=== PATIENT | female | born 1985 | race African-American/Black ===

== ENCOUNTER 2017-04-17 09:16 | Emergency (ER) | payer SELFPAY, OTHER ==
[2017-04-17 09:45] LABS: BASO % 0 % (0-3); EOS # 0.1 x10^3/uL (0.0-0.7); EOS % 0 % (0-3); HEMATOCRIT 38.6 % (36.0-47.0); HEMOGLOBIN 12.7 g/dL (12.0-15.5); LYMPH # 0.8 x10^3/uL (1.0-4.8); LYMPH % 5 % (24-48); MEAN CORPUSCULAR HEMOGLOBIN 32 pg (25-35); MEAN CORPUSCULAR HGB CONC 33 g/dL (31-37); MEAN CORPUSCULAR VOLUME 97 fL (79-100); MONO # 1.7 x10^3/uL (0.0-1.1); MONO % 11 % (0-9); NEUT % 83 % (31-73); PLATELET COUNT 264 x10^3/uL (140-400); RED BLOOD COUNT 3.97 x10^6/uL (3.50-5.40); RED CELL DISTRIBUTION WIDTH 12.7 % (11.5-14.5); WHITE BLOOD COUNT 15.6 x10^3/uL (4.0-11.0)
[2017-04-17] MEDS ORDERED: 0.9 % SODIUM CHLORIDE 10 ML DISP.SYRIN. IV ×2 (09:45)
[2017-04-17] MEDS: KETOROLAC 30 MG/ML INJ. IV ×2 (09:46)
[2017-04-17] MEDS: IV NORMAL SALINE 1000ML BAG 1,000 ML IV ×2 (09:46)
[2017-04-17] MEDS: ONDANSETRON PF 4 MG/2 ML VIAL. IV ×2 (09:46)
[2017-04-17 09:47] LABS: ADD MAN DIFF? YES
[2017-04-17] MEDS: HYDROmorphone 2 MG/ML VIAL IV/SQ ×2 (09:47)
[2017-04-17 09:51] LABS: CLARITY,URINE CLOUDY; COLOR,URINE RED
[2017-04-17 10:04] LABS: BACTERIA,URINE MANY /HPF (0-FEW); SQUAMOUS EPITHELIAL CELL,UR MANY /LPF; WBC,URINE TNTC /HPF (0-4)
[2017-04-17 10:06] LABS: ANION GAP 10 (6-14); BLOOD UREA NITROGEN 13 mg/dL (7-20); CALCIUM 8.6 mg/dL (8.5-10.1); CARBON DIOXIDE 26 mmol/L (21-32); CHLORIDE 100 mmol/L (98-107); CREATININE 0.8 mg/dL (0.6-1.0); GFR 102.6; GLUCOSE 105 mg/dL (70-99); POTASSIUM 3.4 mmol/L (3.5-5.1); SODIUM 136 mmol/L (136-145)
[2017-04-17 10:13] LABS: ALBUMIN 3.8 g/dL (3.4-5.0); ALK PHOS 67 U/L (46-116); ALT (SGPT) 42 U/L (14-59); AST (SGOT) 41 U/L (15-37); DIRECT BILIRUBIN 0.2 mg/dL (0.0-0.2); LIPASE 90 U/L (73-393); TOTAL BILIRUBIN 0.6 mg/dL (0.2-1.0); TOTAL PROTEIN 7.6 g/dL (6.4-8.2)
[2017-04-17] MEDS ORDERED: CONTRAST GIVEN MC ×2 (10:15)
[2017-04-17] MEDS: IOHEXOL 300 MG/ML 100ML VIAL. IV ×2 (10:42)
[2017-04-17 11:46] LABS: % BASOS 1 % (0-3); % LYMPHS 4 % (24-48); % MONOS 6 % (0-10); % SEGS 89 % (35-66); PLT ESTIMATE ADEQUATE (ADEQUATE)
[2017-04-17] MEDS: CIPROFLOXACIN HCL 250 MG TABLET. PO ×2 (12:17)
== END 2017-04-17 12:35 | disposition home or self-care (01) ==
LOC: ER 09:16
DX: N12 Tubulo-interstitial nephritis, not specified as acute or chronic (principal); R06.82 Tachypnea, not elsewhere classified; R00.0 Tachycardia, unspecified
CPT/HCPCS: 36415; 74177; 80048; 80076; 81001; 83690; 85007; 85025; 87086; 87186; 96361; 96374; 96375; 99285-25; J1170; J1885; J2405; J7030; Q9967

== ENCOUNTER 2018-02-05 19:49 | Emergency (ER) | payer MEDICAID, OTHER ==
[~2018-02-05] VITALS: Ht 157.5 cm; Wt 62.1 kg
[~2018-02-05 19:49] MED LIST: CIPR500T94 PO; HYDR-2761 PO; NAPR-683 PO; PHEN-318 PO
[2018-02-05 20:22] LABS: BILIRUBIN,URINE SMALL (NEG); CLARITY,URINE TURBID; NITRITE,URINE NEGATIVE (NEG); PH,URINE 6.5; PROTEIN,URINE 100 mg/dL (NEG-TRACE)
[2018-02-05] MEDS: IV NORMAL SALINE 1000ML BAG 1,000 ML IV ONE (20:25)
[2018-02-05 20:26] LABS: COLOR,URINE YELLOW
[2018-02-05 20:28] LABS: BACTERIA,URINE MANY /HPF (0-FEW); RBC,URINE 0 /HPF (0-2)
[2018-02-05 20:29] LABS: SQUAMOUS EPITHELIAL CELL,UR MANY /LPF
[2018-02-05] MEDS: ONDANSETRON PF 4 MG/2 ML VIAL. IV ONE (20:30)
[2018-02-05 20:42] LABS: BASO % 1 % (0-3); EOS # 0.7 x10^3/uL (0.0-0.7); EOS % 9 % (0-3); HEMATOCRIT 37.5 % (36.0-47.0); HEMOGLOBIN 12.6 g/dL (12.0-15.5); LYMPH % 26 % (24-48); MEAN CORPUSCULAR HEMOGLOBIN 32 pg (25-35); MEAN CORPUSCULAR HGB CONC 34 g/dL (31-37); MEAN CORPUSCULAR VOLUME 95 fL (79-100); MONO # 0.9 x10^3/uL (0.0-1.1); MONO % 12 % (0-9); NEUT % 51 % (31-73); PLATELET COUNT 287 x10^3/uL (140-400); RED BLOOD COUNT 3.96 x10^6/uL (3.50-5.40); RED CELL DISTRIBUTION WIDTH 12.7 % (11.5-14.5); WHITE BLOOD COUNT 7.7 x10^3/uL (4.0-11.0)
[2018-02-05 20:44] LABS: CALCIUM 9.1 mg/dL (8.5-10.1); CREATININE 0.9 mg/dL (0.6-1.0); POTASSIUM 3.9 mmol/L (3.5-5.1)
[2018-02-05 20:51] LABS: ALBUMIN 3.6 g/dL (3.4-5.0); ALBUMIN/GLOBULIN RATIO 0.9 (1.0-1.7); TOTAL BILIRUBIN 0.3 mg/dL (0.2-1.0); TOTAL PROTEIN 7.5 g/dL (6.4-8.2)
[2018-02-05 21:15] LABS: INFLUENZA A PATIENT NEGATIVE (NEGATIVE); INFLUENZA B PATIENT NEGATIVE (NEGATIVE)
[2018-02-05 21:45] VITALS: BP 107/64
[2018-02-05] MEDS ORDERED: ONDA4TAB12 PO (22:34)
[2018-02-05] MEDS ORDERED: SULF1TAB24 PO (22:34)
--- NOTE | 2018-02-05 22:36 | PHYS DOC ---
Past Medical History Past Medical History: Anemia Past Surgical History: Alcohol Use: None Drug Use: None Adult General Chief Complaint Chief Complaint: NAUSEA/VOMITING/DIARRHA HPI HPI Patient is a 32 year old female who presents to the ER with complaints of nausea, vomiting, diarrhea, and a fever since 02/03/18. Pt states that the sx started after she had eaten some taco meat. Pt denies any cough, sore throat, nasal congestion, abdominal pain, irregular vaginal discharge, or dysuria. Pt states she has had fatigue and body aches. She reports low back pain with mild increase in urinary frequency. She has had one episode of vomiting and one episode of diarrhea in the last 24 hours. Her LMP was 01/16/18. Currently her discomfort is a 6/10. Review of Systems Review of Systems Constitutional:See HPI HENT: Denies nasal congestion or sore throat [] Respiratory: Denies cough or shortness of breath [] GI: Denies abdominal pain, See HPI : Denies dysuria or hematuria; See HPI[] Musculoskeletal: reports low back ache Integument: Denies rash or skin lesions [] Neurologic: Denies headache, focal weakness or sensory changes [] All other systems were reviewed and found to be within normal limits, except as documented in this note. Current Medications Current Medications Current Medications Medications (Trade) Dose Ordered Sig/Court Start Time Stop Time Status Last Admin Dose Admin Ondansetron HCl (Zofran) 4 mg 1X ONCE 02/05/18 20:30 02/05/18 20:31 DC 02/05/18 20:30 4 MG Sodium Chloride 1,000 ml @ 1,000 mls/hr 1X ONCE 02/05/18 20:30 02/05/18 21:29 DC 02/05/18 20:25 1,000 MLS/HR Allergies Allergies Allergies Coded Allergies Type Severity Reaction Last Updated Verified No Known Drug Allergies 07/20/13 No Physical Exam Physical Exam Constitutional: Well developed, well nourished, no acute distress, non-toxic appearance. [] HENT: Normocephalic, atraumatic, bilateral external ears normal, dry mucous membranes and lips, no oral exudates, nose normal. [] Eyes: conjunctiva normal, no discharge. [] Neck: Normal range of motion Cardiovascular:Heart rate regular rhythm, no murmur [] Lungs & Thorax: Bilateral breath sounds clear to auscultation [] Abdomen: Bowel sounds normal, soft, no tenderness, no masses, no pulsatile masses. [] Skin: Warm, dry, no erythema, no rash. [] Back: No CVA tenderness. [] Extremities: No cyanosis, ROM intact, no edema. [] Neurologic: Alert and oriented X 3, normal motor function, normal sensory function, no focal deficits noted. [] Psychologic: Affect normal, judgement normal, mood normal. [] Current Patient Data Vital Signs Vital Signs Date Time Temp Pulse Resp B/P (MAP) Pulse Ox O2 Delivery O2 Flow Rate FiO2 02/05/18 21:45 68 16 107/64 (78) 99 Room Air 02/05/18 19:49 98.2 98.2 Lab Values Laboratory Tests Test 02/05/18 19:49 02/05/18 20:16 02/05/18 20:26 02/05/18 20:30 Urine Collection Type Unknown Urine Color Yellow Urine Clarity Turbid Urine pH 6.5 Urine Specific [place] >=1.030 Urine Protein 100 mg/dL (NEG-TRACE) Urine Glucose (UA) Negative mg/dL (NEG) Urine Ketones (Stick) Trace mg/dL (NEG) Urine Blood Large (NEG) Urine Nitrite Negative (NEG) Urine Bilirubin Small (NEG) Urine Urobilinogen Dipstick 1.0 mg/dL (0.2 mg/dL) Urine Leukocyte Esterase Moderate (NEG) Urine RBC 0 /HPF (0-2) Urine WBC 1-4 /HPF (0-4) Urine Squamous Epithelial Cells Many /LPF Urine Bacteria Many /HPF (0-FEW) Urine Mucus Mod /LPF POC Urine HCG, Qualitative Hcg negative (Negative) White Blood Count 7.7 x10^3/uL (4.0-11.0) Red Blood Count 3.96 x10^6/uL (3.50-5.40) Hemoglobin 12.6 g/dL (12.0-15.5) Hematocrit 37.5 % (36.0-47.0) Mean Corpuscular Volume 95 fL (79-100) Mean Corpuscular Hemoglobin 32 pg (25-35) Mean Corpuscular Hemoglobin Concent 34 g/dL (31-37) Red Cell Distribution Width 12.7 % (11.5-14.5) Platelet Count 287 x10^3/uL (140-400) Neutrophils (%) (Auto) 51 % (31-73) Lymphocytes (%) (Auto) 26 % (24-48) Monocytes (%) (Auto) 12 % (0-9) H Eosinophils (%) (Auto) 9 % (0-3) H Basophils (%) (Auto) 1 % (0-3) Neutrophils # (Auto) 4.0 x10^3uL (1.8-7.7) Lymphocytes # (Auto) 2.0 x10^3/uL (1.0-4.8) Monocytes # (Auto) 0.9 x10^3/uL (0.0-1.1) Eosinophils # (Auto) 0.7 x10^3/uL (0.0-0.7) Basophils # (Auto) 0.0 x10^3/uL (0.0-0.2) Sodium Level 140 mmol/L (136-145) Potassium Level 3.9 mmol/L (3.5-5.1) Chloride Level 104 mmol/L (98-107) Carbon Dioxide Level 26 mmol/L (21-32) Anion Gap 10 (6-14) Blood Urea Nitrogen 14 mg/dL (7-20) Creatinine 0.9 mg/dL (0.6-1.0) Estimated GFR (Cockcroft-Gault) 89.0 BUN/Creatinine Ratio 16 (6-20) Glucose Level 93 mg/dL (70-99) Calcium Level 9.1 mg/dL (8.5-10.1) Total Bilirubin 0.3 mg/dL (0.2-1.0) Aspartate Amino Transferase (AST) 17 U/L (15-37) Alanine Aminotransferase (ALT) 15 U/L (14-59) Alkaline Phosphatase 72 U/L (46-116) Total Protein 7.5 g/dL (6.4-8.2) Albumin 3.6 g/dL (3.4-5.0) Albumin/Globulin Ratio 0.9 (1.0-1.7) L Influenza Type A Antigen Negative (NEGATIVE) Influenza Type B Antigen Negative (NEGATIVE) Laboratory Tests 02/05/18 20:26 Laboratory Tests 02/05/18 20:26 EKG EKG [] Radiology/Procedures Radiology/Procedures [] Course & Med Decision Making Course & Med Decision Making Pertinent Labs and Imaging studies reviewed. (See chart for details) Dx: UTI, gastroenteritis Pt was given 1L NS and 4 mg of zofran in the ER, reports feeling better after medications. Rx for zofran and bactrim. Clear fluids x24 hours, then advance diet as tolerated. Follow up with PCP if sx persist, return to ER if sx worsen. Patient verbalized an understanding of home care, medications, follow-up, and return to ED instructions and was in agreement with the plan of care. [] Dragon Disclaimer Dragon Disclaimer This electronic medical record was generated, in whole or in part, using a voice recognition dictation system. Departure Departure Impression: Primary Impression: UTI (urinary tract infection) Additional Impression: Gastroenteritis Disposition: 01 HOME, SELF-CARE Condition: STABLE Referrals: UNKNOWN PCP NAME (PCP) Patient Instructions: Urinary Tract Infection, Sruq-[id number], Viral Gastroenteritis, Ceqr-[id number] Additional Instructions: Fill the prescriptions and use as directed. Clear fluids x24 hours, then bland foods and advance diet as tolerated. Follow up with your primary care doctor if symptoms persist, return to the ER if symptoms worsen. Scripts Ondansetron (ONDANSETRON ODT) 4 Mg Tab.rapdis 1 TAB PO PRN Q6-8HRS PRN for NAUSEA/VOMITING, #16 TAB 0 Refills Prov: MARCIN ORLANDO APRN 02/05/18 Sulfamethoxazole/Trimethoprim (BACTRIM DS TABLET) 1 Each Tablet 1 TAB PO BID for 3 Days, #6 TAB 0 Refills Prov: MARCIN ORLANDO APRN 02/05/18 Problem Qualifiers Primary Impression: UTI (urinary tract infection) Urinary tract infection type: site unspecified Hematuria presence: without hematuria Qualified Codes: N39.0 - Urinary tract infection, site not specified MARCIN ORLANDO APRN Feb 05, 2018 22:36
== END 2018-02-05 22:45 | disposition home or self-care (01) ==
LOC: ER 19:49
DX: K52.9 Noninfective gastroenteritis and colitis, unspecified (principal); N39.0 Urinary tract infection, site not specified
CPT/HCPCS: 36415; 80053; 81001; 81025; 85025; 87086; 87804; 96361; 96374; 99283; J2405; J7030

== ENCOUNTER 2018-03-18 20:10 | Emergency (ER) | payer OTHER ==
[~2018-03-18] VITALS: Ht 157.5 cm; Wt 62.1 kg
[~2018-03-18 20:10] MED LIST changes: +ONDA4TAB12 PO; +SULF1TAB24 PO
[2018-03-18 20:30] VITALS: BP 138/81
[2018-03-18 21:05] LABS: BILIRUBIN,URINE NEGATIVE (NEG); CLARITY,URINE CLEAR; COLOR,URINE YELLOW; NITRITE,URINE NEGATIVE (NEG); PH,URINE 6.5; PROTEIN,URINE NEGATIVE (NEG-TRACE)
[2018-03-18 21:12] LABS: BACTERIA,URINE MODERATE /HPF (0-FEW); RBC,URINE RARE /HPF (0-2); SQUAMOUS EPITHELIAL CELL,UR MANY /LPF
[2018-03-18] MEDS ORDERED: SULF1TAB24 PO (21:28)
--- NOTE | 2018-03-18 21:28 | PHYS DOC ---
Past Medical History Past Medical History: Anemia Past Surgical History: No Surgical History, Alcohol Use: None Drug Use: None Adult General Chief Complaint Chief Complaint: URINARY FREQUENCY HPI HPI Patient is a 32 year old AA female who presents to the emergency room with complaints of dysuria, suprapubic pain after urination, and increased urinary frequency that started on Saturday. Patient states that she has been taking Azo eyao-umr-[id number] with some relief of her symptoms. She denies any fever, abdominal pain, nausea, vomiting, diarrhea, irregular vaginal discharge, vaginal odor, or sexually transmitted disease concerns. Patient states she had a urinary tract infection a year ago and reports that her symptoms are similar to those symptoms. Review of Systems Review of Systems Constitutional: Denies fever or chills [] HENT: Denies nasal congestion or sore throat [] Respiratory: Denies cough or shortness of breath [] Cardiovascular: No additional information not addressed in HPI [] GI: Denies abdominal pain, nausea, vomiting, or diarrhea [] : See history of present illness Musculoskeletal: Denies back pain Neurologic: Denies headache, focal weakness or sensory changes [] All other systems were reviewed and found to be within normal limits, except as documented in this note. Allergies Allergies Allergies Coded Allergies Type Severity Reaction Last Updated Verified No Known Drug Allergies 07/20/13 No Physical Exam Physical Exam Constitutional: Well developed, well nourished, no acute distress, non-toxic appearance. [] HENT: Normocephalic, atraumatic, bilateral external ears normal, oropharynx moist, no oral exudates, nose normal. [] Eyes: conjunctiva normal, no discharge. [] Cardiovascular:Heart rate regular rhythm, no murmur [] Lungs & Thorax: Bilateral breath sounds clear to auscultation [] Abdomen: soft, no tenderness, no masses, no pulsatile masses. [] Skin: Warm, dry, no erythema, no rash. [] Back: No CVA tenderness. [] Neurologic: Alert and oriented X 3, normal motor function, normal sensory function, no focal deficits noted. [] Psychologic: Affect normal, judgement normal, mood normal. [] Current Patient Data Vital Signs Vital Signs Date Time Temp Pulse Resp B/P (MAP) Pulse Ox O2 Delivery O2 Flow Rate FiO2 03/18/18 20:30 98.8 65 19 138/81 (100) 98 Room Air 98.8 Lab Values Laboratory Tests Test 03/18/18 20:40 Urine Collection Type Unknown Urine Color Yellow Urine Clarity Clear Urine pH 6.5 Urine Specific [place] 1.025 Urine Protein Negative mg/dL (NEG-TRACE) Urine Glucose (UA) Negative mg/dL (NEG) Urine Ketones (Stick) Negative mg/dL (NEG) Urine Blood Negative (NEG) Urine Nitrite Negative (NEG) Urine Bilirubin Negative (NEG) Urine Urobilinogen Dipstick 1.0 mg/dL (0.2 mg/dL) Urine Leukocyte Esterase Trace (NEG) Urine RBC Rare /HPF (0-2) Urine WBC 1-4 /HPF (0-4) Urine Squamous Epithelial Cells Many /LPF Urine Bacteria Moderate /HPF (0-FEW) Urine Mucus Marked /LPF EKG EKG [] Radiology/Procedures Radiology/Procedures [] Course & Med Decision Making Course & Med Decision Making Pertinent Labs and Imaging studies reviewed. (See chart for details) Dx: UTI Prescription written for Bactrim DS 1 twice a day �3 days. Instructed patient to avoid bladder irritants, increase clear fluids. Patient verbalized an understanding of home care, medications, follow-up, and return to ED instructions and was in agreement with the plan of care. [] Dragon Disclaimer Dragon Disclaimer This electronic medical record was generated, in whole or in part, using a voice recognition dictation system. Departure Departure Impression: Primary Impression: UTI (urinary tract infection) Disposition: 01 HOME, SELF-CARE Condition: STABLE Referrals: UNKNOWN PCP NAME (PCP) Patient Instructions: Urinary Tract Infection, [id number] Additional Instructions: Fill prescription(s) and use as directed. Avoid bladder irritants such as caffeine, carbonation, and spicy foods. Increase clear fluids. Follow up with your primary care doctor if symptoms persist, return to the ER if symptoms worsen. Scripts Sulfamethoxazole/Trimethoprim (BACTRIM DS TABLET) 1 Each Tablet 1 TAB PO BID for 3 Days, #6 TAB 0 Refills Prov: MARCIN ORLANDO APRN 03/18/18 Problem Qualifiers Primary Impression: UTI (urinary tract infection) Urinary tract infection type: site unspecified Hematuria presence: without hematuria Qualified Codes: N39.0 - Urinary tract infection, site not specified MARCIN ORLANDO [employer] Mar 18, 2018 21:28
== END 2018-03-18 21:30 | disposition home or self-care (01) ==
LOC: ER 20:10
DX: N39.0 Urinary tract infection, site not specified (principal)
CPT/HCPCS: 81001; 87086; 99283

== ENCOUNTER 2018-06-26 20:32 | Emergency (ER) | payer OTHER ==
[~2018-06-26] VITALS: Ht 157.5 cm; Wt 59.0 kg
[2018-06-26 20:43] VITALS: BP 147/94
[2018-06-26] MEDS ORDERED: PRED20TA PO (20:52)
[2018-06-26] MEDS ORDERED: AMOX500C PO (20:52)
[2018-06-26] MEDS ORDERED: NYST100054 PO (20:52)
--- NOTE | 2018-06-26 20:52 | PHYS DOC ---
Past Medical History Past Medical History: Anemia (JEANETH MELGOZA) Past Surgical History: No Surgical History, (JEANETH MELGOZA) Alcohol Use: None Drug Use: None (JEANETH MELGOZA) Adult General Chief Complaint Chief Complaint: MULTIPLE COMPLAINTS HPI HPI Patient is a 32 year old F who presents with cough, congestion, ear pain, throat and tongue pain and a rash on her upper chest. She reports symptoms started about a week ago. (JEANETH MELGOZA) Review of Systems Review of Systems Constitutional: Denies fever or chills [] Eyes: Denies change in visual acuity, redness, or eye pain [] HENT: Ear pain, sore throat and tongue exudate Respiratory: Denies cough or shortness of breath [] Cardiovascular: No additional information not addressed in HPI [] GI: Denies abdominal pain, nausea, vomiting, bloody stools or diarrhea [] : Denies dysuria or hematuria [] Musculoskeletal: Denies back pain or joint pain [] Integument: Reports rash. Neurologic: Denies headache, focal weakness or sensory changes [] Endocrine: Denies polyuria or polydipsia [] All other systems were reviewed and found to be within normal limits, except as documented in this note. (JEANETH MELGOZA) Allergies Allergies Allergies Coded Allergies Type Severity Reaction Last Updated Verified No Known Drug Allergies 07/20/13 No (DAISY CRAWFORD DO) Physical Exam Physical Exam Constitutional: Well developed, well nourished, no acute distress, non-toxic appearance. [] HENT: Normocephalic, atraumatic, Oropharynx is erythematous, tongue is covered with white plaque consistent with thrush, B TM erythema Eyes: PERRLA, EOMI, conjunctiva normal, no discharge. [] Neck: Normal range of motion, no tenderness, supple, no stridor. [] Cardiovascular:Heart rate regular rhythm, no murmur [] Lungs & Thorax: Bilateral breath sounds clear to auscultation [] Abdomen: Bowel sounds normal, soft, no tenderness, no masses, no pulsatile masses. [] Skin: Warm, dry. Red papular rash along anterior upper chest and neck region. Pruritic. Back: No tenderness, no CVA tenderness. [] Extremities: No tenderness, no cyanosis, no clubbing, ROM intact, no edema. [] Neurologic: Alert and oriented X 3, normal motor function, normal sensory function, no focal deficits noted. [] Psychologic: Affect normal, judgement normal, mood normal. [] (JEANETH MELGOZA) Current Patient Data Vital Signs Vital Signs Date Time Temp Pulse Resp B/P (MAP) Pulse Ox O2 Delivery O2 Flow Rate FiO2 06/26/18 20:43 98.3 99 22 147/94 (111) 98 Room Air 98.3 (CRAWFORDDAISY BAIRD DO) EKG EKG [] (JEANETH MELGOZA) Radiology/Procedures Radiology/Procedures [] (JEANETH MELGOZA) Course & Med Decision Making Course & Med Decision Making Pertinent Labs and Imaging studies reviewed. (See chart for details) Pt with B OM, pharyngitis and thrush. Pt encouraged to rest and push fluids. She can continue the benadryl PRN but recommended stopping all other OTC products until rash has resolved. (JEANETH MELGOZA) Dragon Disclaimer Dragon Disclaimer This electronic medical record was generated, in whole or in part, using a voice recognition dictation system. (JEANETH MELGOZA) Departure Departure Impression: Primary Impression: Otitis media Additional Impressions: Pharyngitis Thrush Rash and nonspecific skin eruption Disposition: 01 HOME, SELF-CARE Condition: STABLE Referrals: UNKNOWN PCP NAME (PCP) Patient Instructions: Otitis Media, Adult, Rash, Zenm-ss-Mlaf, Thrush, Adult, Guqo-ob-Xxvh, Viral and Bacterial Pharyngitis, Pvao-ck-Phsu Scripts Prednisone (PREDNISONE) 20 Mg Tablet 1 TAB PO DAILY, #5 TAB Prov: JEANETH MELGOZA 06/26/18 Nystatin (NYSTATIN) 100,000 Unit/1 Ml Oral.susp 5 ML PO QID, #200 ML Prov: JEANETH MELGOZA 06/26/18 Amoxicillin (AMOXICILLIN) 500 Mg Capsule 1 CAP PO TID, #30 CAP Prov: JEANETH MELGOZA 06/26/18 Attending Signature Attending Signature I have reviewed the PA/PARTS PERSON's note and plan of care. I was available for consultation as needed during the patient's visit in the emergency department. I agree with the clinical impression, plan, and disposition. (DAISY CRAWFORD DO) Problem Qualifiers JEANETH MELGOZA Jun 26, 2018 20:52 DAISY CRAWFORD DO Jun 29, 2018 15:35
== END 2018-06-26 20:58 | disposition home or self-care (01) ==
LOC: ER 20:32
DX: J02.9 Acute pharyngitis, unspecified (principal); H66.93 Otitis media, unspecified, bilateral; B37.9 Candidiasis, unspecified
CPT/HCPCS: 99283

== ENCOUNTER 2019-07-16 00:42 | Emergency (ER) | payer OTHER ==
[~2019-07-16] VITALS: Ht 157.5 cm; Wt 67.9 kg
[~2019-07-16 00:42] MED LIST changes: +AMOX500C PO; +NYST100054 PO; +PRED20TA PO
[2019-07-16] MEDS ORDERED: NITR100C62 PO (01:20)
[2019-07-16] MEDS ORDERED: PHEN100T82 PO (01:20)
--- NOTE | 2019-07-16 01:20 | PHYS DOC ---
Past Medical History Past Medical History: Anemia Past Surgical History: No Surgical History, Smoking Status: Never Smoker Alcohol Use: None Drug Use: None General Adult EDM: Chief Complaint: PAIN ON URINATION HPI: HPI: Patient is a 33 year old female who presents with complaint of painful urinatio n for the last week. Patient states that she has been taking [id number] medication for relief of symptoms but things are just not getting any better. She denies any fever. She does indicate that she is starting to get a little bit of back pain however. [] Review of Systems: Review of Systems: Constitutional: Denies fever or chills. [] Respiratory: Denies cough or shortness of breath. [] Cardiovascular: Denies chest pain or edema. [] GI: Denies abdominal pain, nausea, vomiting or diarrhea. [] : Complains of dysuria. [] Neurologic: Denies headache, focal weakness or sensory changes. [] Heart Score: Risk Factors: Risk Factors: DM, Current or recent (<one month) smoker, HTN, HLP, family history of CAD, obesity. Risk Scores: Score 0 - 3: 2.5% MACE over next 6 weeks - Discharge Home Score 4 - 6: 20.3% MACE over next 6 weeks - Admit for Clinical Observation Score 7 - 10: 72.7% MACE over next 6 weeks - Early Invasive Strategies Allergies: Allergies: Allergies Coded Allergies Type Severity Reaction Last Updated Verified No Known Drug Allergies 07/20/13 No Physical Exam: PE: Constitutional: Well developed, well nourished, no acute distress, non-toxic appearance. [] Cardiovascular: Regular rate and rhythm [] Lungs & Thorax: Bilateral breath sounds clear to auscultation [] Abdomen: Bowel sounds normal, soft, with mild suprapubic tenderness. [] Current Patient Data: Labs: Laboratory Tests Test 07/16/19 01:12 POC Urine HCG, Qualitative Hcg positive (Negative) EKG: EKG: [] Radiology/Procedures: Radiology/Procedures: [] Course & Med Decision Making: Course & Med Decision Making Pertinent Labs and Imaging studies reviewed. (See chart for details) [] Dragon Disclaimer: Dragon Disclaimer: This electronic medical record was generated, in whole or in part, using a voice recognition dictation system. Departure Departure Impression: Primary Impression: UTI (urinary tract infection) Qualified Codes: N39.0 - Urinary tract infection, site not specified Additional Impression: Positive test Disposition: 01 HOME, SELF-CARE Condition: STABLE Referrals: UNKNOWN PCP NAME (PCP) Patient Instructions: , Urinary Tract Infection Scripts Phenazopyridine Hcl (PYRIDIUM) 100 Mg Tablet 1 TAB PO TID for urinary discomfort for 3 Days, #9 TAB 0 Refills Prov: PHILIP STINSON Jr. DO 07/16/19 Nitrofurantoin Monohyd/M-Cryst (MACROBID 100 MG CAPSULE) 100 Mg Capsule 1 CAP PO BID for 7 Days, #14 CAP 0 Refills Prov: PHILIP STINSON Jr. DO 07/16/19 PHILIP STINSON Jr. DO July 16, 2019 01:20
[2019-07-16 01:21] LABS: CLARITY,URINE HAZY; COLOR,URINE ORANGE
[2019-07-16 01:24] LABS: AMORPHOUS SEDIMENT,UR PRESENT /HPF; BACTERIA,URINE MODERATE /HPF (0-FEW); RBC,URINE RARE /HPF (0-2); SQUAMOUS EPITHELIAL CELL,UR MANY /LPF
[2019-07-16 02:12] VITALS: BP 118/86
[2019-07-16] MEDS: PHENAZOPYRIDINE 200 MG TABLET. PO ONE (02:13)
[2019-07-16] MEDS: NITROFURANTOIN MONOHYD/M-CRYST 100 MG CAPSULE. PO ONE (02:13)
== END 2019-07-16 02:20 | disposition home or self-care (01) ==
LOC: ER 00:42
DX: N39.0 Urinary tract infection, site not specified (principal); Z32.01 Encounter for pregnancy test, result positive
CPT/HCPCS: 81001; 81025; 99283

== ENCOUNTER 2019-07-22 00:14 | Emergency (ER) | payer OTHER ==
[~2019-07-22] VITALS: Ht 157.5 cm; Wt 68.2 kg
[~2019-07-22 00:14] MED LIST changes: +NITR100C62 PO; +PHEN100T82 PO
[2019-07-22 00:30] LABS: BILIRUBIN,URINE NEGATIVE (NEG); CLARITY,URINE CLEAR; COLOR,URINE YELLOW; NITRITE,URINE NEGATIVE (NEG); PH,URINE 5.5 (<5.0-8.0); PROTEIN,URINE NEGATIVE (NEG-TRACE); UROBILINOGEN,URINE 0.2 mg/dL (0.2 mg/dL)
[2019-07-22 00:33] LABS: BACTERIA,URINE MANY /HPF (0-FEW); RBC,URINE OCC /HPF (0-2)
[2019-07-22 00:34] LABS: SQUAMOUS EPITHELIAL CELL,UR MOD /LPF
[2019-07-22 00:48] VITALS: BP 126/84
[2019-07-22] MEDS ORDERED: DOXY1TAB3 PO (00:57)
[2019-07-22] MEDS ORDERED: NITR100C62 PO (00:57)
--- NOTE | 2019-07-22 00:59 | PHYS DOC ---
Past Medical History Past Medical History: Anemia Past Surgical History: No Surgical History, Smoking Status: Never Smoker Alcohol Use: None Drug Use: None General Adult EDM: Chief Complaint: PAIN ON URINATION HPI: HPI: 33-year-old female otherwise healthy, who presents for evaluation of a 6-day history of burning on urination with some suprapubic fullness. Associated nausea and vomiting as well as some lower abdominal discomfort, atraumatic without focal weakness or paresthesia. FDLMP is 4/15. Review of Systems: Review of Systems: Gen: No fever, chills. Eyes: No blurred vision, diplopia. ENT: No nasal congestion, sore throat. CV: No CP, palpitations. Resp. No SOB, cough. GI: No vomiting. Reports suprapubic fullness, nausea. : No vaginal bleeding or discharge, hematuria, bowel or bladder dysfunction. Reports dysuria. Neuro: No SANCHEZ, dizziness, weakness. MSK: No myalgia, arthralgia. Reports atraumatic low back pain. Skin: No acute rash or lesion. Heart Score: Risk Factors: Risk Factors: DM, Current or recent (<one month) smoker, HTN, HLP, family history of CAD, obesity. Risk Scores: Score 0 - 3: 2.5% MACE over next 6 weeks - Discharge Home Score 4 - 6: 20.3% MACE over next 6 weeks - Admit for Clinical Observation Score 7 - 10: 72.7% MACE over next 6 weeks - Early Invasive Strategies Allergies: Allergies: Allergies Coded Allergies Type Severity Reaction Last Updated Verified No Known Drug Allergies 07/16/19 No Physical Exam: PE: Gen: NAD. Well nourished. Head: NC/AT. Eyes: No scleral icterus. No conjunctival injection. ENT: MMM. Neck: Supple CV: RRR. . Peripheral pulses intact. Resp: CTAB. Abd: Soft. NT. ND. MSK: No peripheral cyanosis. No edema. Neuro: Awake and alert. Skin. Warm. Dry. Psych: Appropriate mood & affect. Current Patient Data: Labs: Laboratory Tests Test 07/22/19 00:20 07/22/19 00:23 Urine Collection Type Unknown Urine Color Yellow Urine Clarity Clear Urine pH 5.5 (<5.0-8.0) Urine Specific [place] 1.025 (1.000-1.030) Urine Protein Negative mg/dL (NEG-TRACE) Urine Glucose (UA) Negative mg/dL (NEG) Urine Ketones (Stick) 40 mg/dL (NEG) Urine Blood Small (NEG) Urine Nitrite Negative (NEG) Urine Bilirubin Negative (NEG) Urine Urobilinogen Dipstick 0.2 mg/dL (0.2 mg/dL) Urine Leukocyte Esterase Negative (NEG) Urine RBC Occ /HPF (0-2) Urine WBC 1-4 /HPF (0-4) Urine Squamous Epithelial Cells Mod /LPF Urine Bacteria Many /HPF (0-FEW) Urine Mucus Mod /LPF POC Urine HCG, Qualitative Hcg positive (Negative) EKG: EKG: [] Radiology/Procedures: Radiology/Procedures: [] Course & Med Decision Making: Course & Med Decision Making Pertinent Labs and Imaging studies reviewed. (See chart for details) In summary, 33-year-old female with FDLMP 06/16, who presents with nearly 1 week of dysuria and suprapubic fullness with nausea, found to be . Negative nitrites and leukocyte Estrace, though presence of bacteria and a moderately contaminated specimen. Given bacteriuria in , the patient will be managed conservatively with nitrofurantoin 1 mg twice daily x5 days. Recommended [id number] Unisom/B6 ("Diclegis") for associated nausea, as well as a vitamin. Previously establish care with [facility], instructed to follow-up. Return precautions given. Nehemias Disclaimer: Nehemias Disclaimer: This electronic medical record was generated, in whole or in part, using a voice recognition dictation system. Departure Departure Impression: Primary Impression: Bacteriuria during Disposition: 01 HOME, SELF-CARE Condition: STABLE Referrals: UNKNOWN PCP NAME (PCP) Patient Instructions: - Urinary Tract Infection Additional Instructions: For your nausea in , take 2 tabs of 10 mg doxylamine ("Unisom) with 2 tabs of 10 mg pyridoxine (Vitamin B6) at night. You may also fill the prescribed Diclegis, though this is often expensive and not covered by insurance. Please follow up with your OB, and start taking a vitamin. Scripts Doxylamine/Pyridoxine Hcl (DICLEGIS DR 10-10 MG TABLET) 1 Each Tablet.dr 2 TAB PO QHS for 24 Days, #48 TAB 0 Refills Prov: LE,ANNIE H DO 07/22/19 Nitrofurantoin Monohyd/M-Cryst (MACROBID 100 MG CAPSULE) 100 Mg Capsule 1 CAP PO BID for 5 Days, #10 CAP 0 Refills Prov: LE,ANNIE H DO 07/22/19 LE,ANNIE H DO July 22, 2019 00:59
== END 2019-07-22 01:05 | disposition home or self-care (01) ==
LOC: ER 00:14
DX: O21.9 Vomiting of pregnancy, unspecified (principal); R30.0 Dysuria; R30.9 Painful micturition, unspecified; Z98.890 Other specified postprocedural states
CPT/HCPCS: 81001; 81025; 87086; 99283